=== PATIENT | female | born 1950 | race Caucasian/White ===

== ENCOUNTER 2017-05-18 08:10 | Day surgery (SDC) | payer MEDICARE, OTHER ==
[2017-05-18] MEDS ORDERED: Lactated Ringers 1,000 ML IV ONE (08:11)
[2017-05-18] MEDS ORDERED: Xylocaine 1% Vial 30 ML PF IJ ONE (08:11)
[2017-05-18] MEDS ORDERED: DIPRIVAN 200 MG/20 ML IV ONE (08:11)
[2017-05-18] MEDS ORDERED: Marcaine 0.5% SDV 10 ML IJ ONE (08:11)
[2017-05-18 08:57] LABS: Hematocrit 41.5 % (35-47); Hemoglobin 13.7 gm/dl (12.0-16.0); Mean Cell Volume 93.9 fl (78-100); Mean Platelet Volume 9.7 fl (6-9.5); Platelet Count 311 K/mm3 (150-450); Red Blood Count 4.42 M/mm3 (4.1-5.4); Red Cell Distribution Width 14.7 % (11.5-14.0); White Blood Count 9.7 K/mm3 (4.0-10.5)
[2017-05-18 09:12] LABS: INR 1.08 (0.8-3.0)
[2017-05-18 09:15] LABS: PTT 27.6 SECONDS (25.3-37.0)
--- NOTE | 2017-05-18 12:40 | XRAY ---
Indication: Right L2-L3 MBB. Intraoperative fluoroscopy was provided for 43 seconds. 2 digital spot images submitted for interpretation demonstrates posterior spinal needle tips projecting over the expected course of the right L2 and L3 nerve roots. Incidental multilevel bilateral lumbar pedicle screws and spinal rods. Correlate with intraoperative findings/report.
--- NOTE | 2017-05-18 12:44 | XRAY ---
43 seconds fluoroscopy time in surgery for right L2-3 MBB.
--- NOTE | 2017-05-18 14:48 | OP ---
DATE OF PROCEDURE: 05/18/2017 1012 SURGEON: Cal Dobson D.O. PREOPERATIVE DIAGNOSIS: 1. Degenerative lumbar spine disease, spondylosis, low back pain. POSTOPERATIVE DIAGNOSIS: 1. Degenerative lumbar spine disease, spondylosis, low back pain. PROCEDURE PERFORMED: Right L3-L2 medial branch block under fluoroscopic guidance. DESCRIPTION OF THE PROCEDURE: The patient was taken to the operating room and placed in the prone position on the table. Skin at the injection site was prepped and draped in sterile fashion. Under fluoroscopy, bony anatomy of the targeted injection site was visualized. Induction agent was given as per anesthesia while vital signs were monitored. Local anesthetic agent of 2 cc, 1% Lidocaine was introduced to anesthetize the skin and the subcutaneous tissue through the injection site. Under fluoroscopic guidance, a #20 gauge standard spinal needle was advanced into the target medial branch through the oblique approach. 1 cc of 2% preservative-free Lidocaine was injected into each of the targeted medial branch nerve. After the needle was being removed, the skin was cleansed with alcohol and then a bandage was applied. No complications or adverse consequences were observed. The patient was returned to the holding area until stabilized before discharge to home. During the surgical procedure, it was noted that the patient had hardware implantation in lower lumbar area, the possible access for medial branch block possible for L3-L2 medial branch, and therefore right L3-L2 medial branch block was completed. There is no access to medial branch below L3. After the patient has been fully recovered from anesthesia, the patient states 80% pain reduction after this procedure. The patient will be followed up within ten days after the injection for re-evaluation.
== END 2017-05-18 11:22 | disposition home or self-care (01) ==
LOC: SDC-PAIN 08:10
PROVIDERS: ATTEND Internal Medicine
DX: M46.96 Unspecified inflammatory spondylopathy, lumbar region (principal); M62.838 Other muscle spasm; M96.1 Postlaminectomy syndrome, not elsewhere classified; Z79.891 Long term (current) use of opiate analgesic
CPT/HCPCS: 36415; 64493; 72020; 77003; 85027; 85610; 85730; J2001; J2704

== ENCOUNTER 2017-05-29 11:56 | Inpatient (IN) | payer MEDICARE ==
[2017-05-29] MEDS ORDERED: Sodium Chloride 0.9% 1000 ML 2,000 ML ONE (12:23)
[2017-05-29] MEDS ORDERED: Sodium Chloride 0.9% 1000 ML 1,000 ML IV STA ×2 (12:34→12:40)
[2017-05-29] MEDS ORDERED: DUONEB 0.5-3 MG/3 ml Neb IH ONE ×2 (12:34→12:53)
--- NOTE | 2017-05-29 12:34 | ERPHSYRPT ---
- History of Present Illness Time Seen by Provider: 05/29/17 12:31 Source: family Exam Limitations: clinical condition Patient Subjective Stated Complaint: family noticed last night and today patient has been confused. recent cough. Triage Nursing Assessment: to room per w/c. skin hot to touch. color pale. resp fast at 26/min. occasional dry cough noted. at present time patient is a/ o times three. speech slow Physician History: The patient is a 66-year-old female brought in by her family complaining that she was very confused this morning. She was "out of it". She was not breathing well. Her eyes are open and rolled back. She did not answer questions well at home. After placing supplemental oxygen by nasal cannula on her in the ER, she began to answer questions appropriately. Her past medical history is significant for COPD, hypertension, chronic back pain, diabetes, TIAs , coronary artery disease, and high cholesterol. Timing/Duration: today Activities at Onset: none Severity of Dyspnea-Max: severe Severity of Dyspnea-Current: severe Possible Cause: occasional episodes Modifying Factors: Improves With: activity Associated Symptoms: cough Allergies/Adverse Reactions: ketorolac tromethamine [From Toradol] Allergy (Verified 01/25/14 18:47) pregabalin [From Lyrica] Allergy (Verified 03/22/17 10:42) Home Medications: Amlodipine Besylate 5 mg [Norvasc 5 mg] 2.5 mg PO BID 01/25/14 [History] Gabapentin 600 mg PO QID 01/25/14 [History] Tizanidine HCl [Zanaflex] 4 mg PO QID 01/25/14 [History] Duloxetine HCl 30 mg [Cymbalta 30 MG Capsule] 90 mg PO DAILY 08/06/15 [ History] Omeprazole 20 MG [Prilosec 20 mg] 20 mg PO DAILY 08/06/15 [History] Hydromorphone HCl 4 mg [Dilaudid 4 MG Tab] 2 mg PO Q4-6HPRN PRN 09/16/15 [ History] Pravastatin Sodium 10 mg PO DAILY 10/19/16 [History] Cilostazol 100 mg [Pletal 100 MG] 100 mg PO BID 12/14/16 [History] Clopidogrel Bisulfate 75 mg [PLAVIX 75 MG Tablet] 75 mg PO DAILY 12/14/16 [History] Glipizide 5 mg [Glucotrol 5 MG] 5 mg PO DAILY 03/22/17 [History] Metoprolol Tartrate 50 mg [Lopressor 50 MG] 50 mg PO BID 03/22/17 [History ] Trazodone HCl [Desyrel] 100 mg PO HS 03/22/17 [History] Meloxicam [Mobic] 15 mg PO DAILY 05/10/17 [History] Hx Tetanus, Diphtheria Vaccination/Date Given: No Hx Influenza Vaccination/Date Given: Yes Hx Pneumococcal Vaccination/Date Given: No - Review of Systems Constitutional: Lethargy Eyes: No Symptoms Ears, Nose, & Throat: No Symptoms Respiratory: Cough, Dyspnea Cardiac: No Chest Pain, No Edema, No Syncope Abdominal/Gastrointestinal: No Abdominal Pain, No Nausea, No Vomiting, No Diarrhea Genitourinary Symptoms: No Dysuria Musculoskeletal: No Back Pain, No Neck Pain Skin: No Rash Neurological: No Dizziness, No Focal Weakness, No Sensory Changes Psychological: No Symptoms Endocrine: No Symptoms Hematologic/Lymphatic: No Symptoms Immunological/Allergic: No Symptoms All Other Systems: Reviewed and Negative - Past Medical History Pertinent Past Medical History: Yes Neurological History: TIA Cardiac History: Hypertension, Peripheral Vascular Disease Respiratory History: COPD Endocrine Medical History: Diabetes Type II Musculoskeletal History: Osteoporosis - Past Surgical History Past Surgical History: Yes Gastrointestinal: Cholecystectomy Musculoskeletal: Orthopedic Surgery Female Surgical History: Hysterectomy Other Surgical History: BACK SURGERY, LEFT FOOT, RIGHT KNEE, vascular surgery( pvd) - Social History Smoking Status: Current every day smoker How long have you smoked: 47 Exposure to second hand smoke: Yes Drug Use: none Patient Lives Alone: No - Female History Hx Now: No - Nursing Vital Signs Nursing Vital Signs: Initial Vital Signs Temperature 100.3 F 05/29/17 12:17 Pulse Rate 132 H 05/29/17 12:17 Respiratory Rate 26 H 05/29/17 12:17 Blood Pressure 141/84 05/29/17 12:17 O2 Sat by Pulse Oximetry 81 L 05/29/17 12:17 Pain Scale Pain Intensity 0 - Physical Exam General Appearance: moderate distress Eye Exam: PERRL/EOMI Ears, Nose, Throat Exam: hearing grossly normal Neck Exam: normal inspection, supple Respiratory Exam: rhonchi Cardiovascular/Chest Exam: tachycardia Abdominal/Gastrointestinal Exam: soft, No tenderness, No distention, No mass Rectal Exam: not done Extremity Exam: non-tender, normal range of motion, normal inspection, no calf tenderness, no pedal edema Neurologic Exam: oriented x 3 Skin Exam: normal color, warm, No dry SpO2 Interpretation: normal SpO2: 81 Oxygen Delivery: Room Air - Course EKG Interpreted by Me: RATE, Sinus Tach, NORMAL AXIS, NORMAL INTERVALS, NORMAL ST-T - Radiology Exams Chest X-ray Interpretation: Interpreted by me, Infiltrates (diffuse bilateral infiltrates, comp AP CXR 08/06/15.) - CT Exams Head CT Interpretation: Negative, Tele-radiologist Report (per Dr Reyes) Ordered Tests: Active Orders 24 hr Category Date Time Status Tank Wagon Driver STAT Care 05/29/17 12:35 Active EKG-ER Only STAT Care 05/29/17 12:34 Active Nair [Catheter-[place] Nair] STAT Care 05/29/17 13:41 Active IV Insertion STAT Care 05/29/17 12:34 Active IV Insertion-2nd Peripheral STAT Care 05/29/17 12:38 Active IV Insertion-2nd Peripheral STAT Care 05/29/17 12:40 Active Oxygen-ED Only NASAL CANNULA 2 lpm Care 05/29/17 12:34 Active CHEST 2 VIEWS (PA AND LAT) Stat Exams 05/29/17 12:34 Taken HEAD WITHOUT CONTRAST [CT] Stat Exams 05/29/17 15:27 Taken BLOOD CULTURE Stat Lab 05/29/17 12:43 Received CBC W DIFF Stat Lab 05/29/17 12:43 Completed CMP Stat Lab 05/29/17 12:43 Completed CULTURE,URINE Stat Lab 05/29/17 14:00 Received Lactic Acid Stat Lab 05/29/17 12:34 Completed Manual Differential NC Stat Lab 05/29/17 12:43 Completed NT PRO BNP Stat Lab 05/29/17 12:43 Completed TROPONIN Q3H Lab 05/29/17 12:43 Completed TROPONIN Q3H Lab 05/29/17 15:45 Completed TROPONIN Q3H Lab 05/29/17 18:45 Ordered TROPONIN Q3H Lab 05/29/17 21:45 Ordered TROPONIN Q3H Lab 05/30/17 00:45 Ordered UA W/ MICROSCOPIC Stat Lab 05/29/17 14:00 Completed Respiratory Nebulizer STAT RT 05/29/17 12:36 Completed Medication Summary Generic Name Dose Route Start Last Admin Trade Name Addison PRN Reason Stop Dose Admin Sodium Chloride 1,000 mls @ 100 mls/hr 05/29/17 14:00 05/29/17 13:59 Sodium Chloride 0.9% 1000 Ml IV 06/28/17 13:59 100 mls/hr .Q10H TROY Administration Discontinued Medications Generic Name Dose Route Start Last Admin Trade Name Addison PRN Reason Stop Dose Admin Acetaminophen 1,000 mg 05/29/17 14:38 05/29/17 15:27 Tylenol Extra Strength 500 Mg PO 05/29/17 14:39 1,000 mg STAT STA Administration Acetaminophen Confirm 05/29/17 15:26 Tylenol Extra Strength 500 Mg Administered 05/29/17 15:27 Dose 1,000 mg .ROUTE .STK-MED ONE Albuterol/Ipratropium 3 ml 05/29/17 12:34 05/29/17 12:50 Duoneb 0.5-3 Mg/3 Ml Neb IH 05/29/17 12:35 3 ml STAT ONE Administration Albuterol/Ipratropium Confirm 05/29/17 12:53 Duoneb 0.5-3 Mg/3 Ml Neb Administered 05/29/17 12:54 Dose 3 ml IH .STK-MED ONE Sodium Chloride Confirm 05/29/17 12:23 Sodium Chloride 0.9% 1000 Ml Administered 05/29/17 12:24 Dose 2,000 mls @ ud .ROUTE .STK-MED ONE Sodium Chloride 1,000 mls @ 999 mls/hr 05/29/17 12:34 05/29/17 12:38 Sodium Chloride 0.9% 1000 Ml IV 05/29/17 13:34 999 mls/hr .Q1H1M STA Administration Sodium Chloride 1,000 mls @ 999 mls/hr 05/29/17 12:40 05/29/17 13:05 Sodium Chloride 0.9% 1000 Ml IV 05/29/17 13:40 999 mls/hr .Q1H1M STA Administration Lab/Rad Data: Laboratory Result Diagrams 05/29/17 12:43 05/29/17 12:43 Laboratory Results 05/29/17 05/29/17 05/29/17 Range/Units 15:45 14:00 12:43 WBC (4.0-10.5) K/mm3 RBC (4.1-5.4) M/mm3 Hgb (12.0-16.0) gm/dl Hct (35-47) % MCV (78-100) fl MCH (26-32) pg MCHC (32-36) g/dl RDW (11.5-14.0) % Plt Count (150-450) K/mm3 MPV (6-9.5) fl Segmented Neutrophils (36.0-66.0) % Lymphocytes (Manual) (24-44) % Monocytes (Manual) (0.0-12.0) % Differential Comment Platelet Estimate (NORMAL) Sodium (136-145) mEq/L Potassium (3.5-5.1) mEq/L Chloride (98-107) mEq/L Carbon Dioxide (21-32) mEq/L Anion Gap (5-15) MEQ/L BUN (9-20) mg/dL Creatinine (0.55-1.30) mg/dl Estimated GFR ML/MIN Glucose (70-110) MG/DL Lactic Acid (0.4-2.0) Calcium (8.5-10.1) mg/dL Total Bilirubin (0.2-1.0) mg/dL AST (15-37) U/L ALT (12-78) U/L Alkaline Phosphatase (46-116) U/L Troponin I < 0.017 (0.000-0.056) ng/ml NT-Pro-B Natriuret Pep (0-125) pg/ml Serum Total Protein (6.4-8.2) gm/dL Albumin (3.4-5.0) g/dL Ur Collection Type CATH Urine Color YELLOW (YELLOW) Urine Appearance CLOUDY (CLEAR) Urine pH 5.0 (5-6) Ur Specific [place] 1.010 (1.005-1.025) Urine Protein TRACE (Negative) Urine Ketones MODERATE (NEGATIVE) Urine Blood 50 (0-5) [place]/ul Urine Nitrite POSITIVE (NEGATIVE) Urine Bilirubin NEGATIVE (NEGATIVE) Urine Urobilinogen NORMAL (0-1) mg/dL Ur Leukocyte Esterase TRACE (NEGATIVE) Urine Microscopic RBC 2-5 (0-2) /HPF Urine Microscopic WBC 2-5 (0-5) /HPF Ur Epithelial Cells FEW (FEW) /HPF Urine Bacteria PACKED (NEGATIVE) /HPF Urine Mucus SLIGHT (NEGATIVE) /HPF Urine Culture Reflexed YES (NO) Urine Glucose 100 (NEGATIVE) mg/dL Influenza Type A Ag NEGATIVE (NEGATIVE) Influenza Type B Ag NEGATIVE (NEGATIVE) RSV (PCR) NEGATIVE (Negative) Specimen Received 05-29-17 1400 05/29/17 05/29/17 05/29/17 Range/Units 12:43 12:43 12:43 WBC 20.4 H (4.0-10.5) K/mm3 RBC 4.31 (4.1-5.4) M/mm3 Hgb 13.6 (12.0-16.0) gm/dl Hct 40.6 (35-47) % MCV 94.2 (78-100) fl MCH 31.6 (26-32) pg MCHC 33.5 (32-36) g/dl RDW 14.6 H (11.5-14.0) % Plt Count 277 (150-450) K/mm3 MPV 9.8 H (6-9.5) fl Segmented Neutrophils 79 H (36.0-66.0) % Lymphocytes (Manual) 18 L (24-44) % Monocytes (Manual) 3 (0.0-12.0) % Differential Comment NORMAL Platelet Estimate NORMAL (NORMAL) Sodium 139 (136-145) mEq/L Potassium 3.7 (3.5-5.1) mEq/L Chloride 100 (98-107) mEq/L Carbon Dioxide 24.4 (21-32) mEq/L Anion Gap 18.0 H (5-15) MEQ/L BUN 15 (9-20) mg/dL Creatinine 0.91 (0.55-1.30) mg/dl Estimated GFR > 60 ML/MIN Glucose 221 H (70-110) MG/DL Lactic Acid (0.4-2.0) Calcium 8.9 (8.5-10.1) mg/dL Total Bilirubin 1.00 (0.2-1.0) mg/dL AST 11 L (15-37) U/L ALT 19 (12-78) U/L Alkaline Phosphatase 92 (46-116) U/L Troponin I < 0.017 (0.000-0.056) ng/ml NT-Pro-B Natriuret Pep 597 H (0-125) pg/ml Serum Total Protein 7.8 (6.4-8.2) gm/dL Albumin 3.4 (3.4-5.0) g/dL Ur Collection Type Urine Color (YELLOW) Urine Appearance (CLEAR) Urine pH (5-6) Ur Specific [place] (1.005-1.025) Urine Protein (Negative) Urine Ketones (NEGATIVE) Urine Blood (0-5) Naga/ul Urine Nitrite (NEGATIVE) Urine Bilirubin (NEGATIVE) Urine Urobilinogen (0-1) mg/dL Ur Leukocyte Esterase (NEGATIVE) Urine Microscopic RBC (0-2) /HPF Urine Microscopic WBC (0-5) /HPF Ur Epithelial Cells (FEW) /HPF Urine Bacteria (NEGATIVE) /HPF Urine Mucus (NEGATIVE) /HPF Urine Culture Reflexed (NO) Urine Glucose (NEGATIVE) mg/dL Influenza Type A Ag (NEGATIVE) Influenza Type B Ag (NEGATIVE) RSV (PCR) (Negative) Specimen Received 05/29/17 Range/Units 12:34 WBC (4.0-10.5) K/mm3 RBC (4.1-5.4) M/mm3 Hgb (12.0-16.0) gm/dl Hct (35-47) % MCV (78-100) fl MCH (26-32) pg MCHC (32-36) g/dl RDW (11.5-14.0) % Plt Count (150-450) K/mm3 MPV (6-9.5) fl Segmented Neutrophils (36.0-66.0) % Lymphocytes (Manual) (24-44) % Monocytes (Manual) (0.0-12.0) % Differential Comment Platelet Estimate (NORMAL) Sodium (136-145) mEq/L Potassium (3.5-5.1) mEq/L Chloride (98-107) mEq/L Carbon Dioxide (21-32) mEq/L Anion Gap (5-15) MEQ/L BUN (9-20) mg/dL Creatinine (0.55-1.30) mg/dl Estimated GFR ML/MIN Glucose (70-110) MG/DL Lactic Acid 1.1 (0.4-2.0) Calcium (8.5-10.1) mg/dL Total Bilirubin (0.2-1.0) mg/dL AST (15-37) U/L ALT (12-78) U/L Alkaline Phosphatase (46-116) U/L Troponin I (0.000-0.056) ng/ml NT-Pro-B Natriuret Pep (0-125) pg/ml Serum Total Protein (6.4-8.2) gm/dL Albumin (3.4-5.0) g/dL Ur Collection Type Urine Color (YELLOW) Urine Appearance (CLEAR) Urine pH (5-6) Ur Specific [place] (1.005-1.025) Urine Protein (Negative) Urine Ketones (NEGATIVE) Urine Blood (0-5) N[place]/ul Urine Nitrite (NEGATIVE) Urine Bilirubin (NEGATIVE) Urine Urobilinogen (0-1) mg/dL Ur Leukocyte Esterase (NEGATIVE) Urine Microscopic RBC (0-2) /HPF Urine Microscopic WBC (0-5) /HPF Ur Epithelial Cells (FEW) /HPF Urine Bacteria (NEGATIVE) /HPF Urine Mucus (NEGATIVE) /HPF Urine Culture Reflexed (NO) Urine Glucose (NEGATIVE) mg/dL Influenza Type A Ag (NEGATIVE) Influenza Type B Ag (NEGATIVE) RSV (PCR) (Negative) Specimen Received - Progress Progress: improved Air Movement: good Blood Culture(s) Obtained: Yes Antibiotics given: Yes Discussed with : Marisol Landaverde Will see patient in: hospital (full admit) Counseled pt/family regarding: lab results, diagnosis, rad results - Departure Time of Disposition: 17:04 Departure Disposition: In-patient Admission (per Dr Nia Landaverde) Clinical Impression: Pulmonary infiltrates, UTI (urinary tract infection), Dyspnea Condition: Stable Critical Care Time: No Referrals: TARAS ALBA MD [Primary Care Provider] -
[2017-05-29 12:47] LABS: Granulocyte Absolute (ANC) 17.96 (1.4-6.9); Hematocrit 40.6 % (35-47); Hemoglobin 13.6 gm/dl (12.0-16.0); Mean Cell Volume 94.2 fl (78-100); Mean Corpuscular Hemoglobin 31.6 pg (26-32); Mean Corpuscular Hgb Concent. 33.5 g/dl (32-36); Mean Platelet Volume 9.8 fl (6-9.5); Platelet Count 277 K/mm3 (150-450); Red Blood Count 4.31 M/mm3 (4.1-5.4); Red Cell Distribution Width 14.6 % (11.5-14.0); White Blood Count 20.4 K/mm3 (4.0-10.5)
[2017-05-29 13:00] LABS: Lymphocytes 18 % (24-44); Monocyte 3 % (0.0-12.0); Neutrophils 79 % (36.0-66.0); Total Cells Counted 100
[2017-05-29 13:01] LABS: Platelet Estimate NORMAL (NORMAL)
[2017-05-29 13:15] LABS: ALBUMIN 3.4 g/dL (3.4-5.0); ALKALINE PHOSPHATASE 92 U/L (46-116); BLOOD UREA NITROGEN 15 mg/dL (9-20); CHLORIDE 100 mEq/L (98-107); Calcium 8.9 mg/dL (8.5-10.1); Carbon Dioxide 24.4 mEq/L (21-32); Creatinine 1 0.91 mg/dl (0.55-1.30); Glucose 221 MG/DL (70-110); NT PRO BNP 597 pg/ml (0-125); Potassium 3.7 mEq/L (3.5-5.1); SGOT/AST 11 U/L (15-37); SGPT/ALT 19 U/L (12-78); SODIUM 139 mEq/L (136-145); Total Protein 7.8 gm/dL (6.4-8.2)
[2017-05-29 13:19] LABS: INFLUENZA A NEGATIVE (NEGATIVE); INFLUENZA B NEGATIVE (NEGATIVE); RESPIRATORY SYNCTIAL VIRUS NEGATIVE (Negative)
[2017-05-29] MEDS: Sodium Chloride 0.9% 1000 ML 1,000 ML IV SCH ×2 (13:59→19:46)
[2017-05-29 14:19] LABS: Appearance CLOUDY (CLEAR); Bilirubin NEGATIVE (NEGATIVE); Blood 50 Ery/ul (0-5); Glucose 100 mg/dL (NEGATIVE); Ketones MODERATE (NEGATIVE); Leukocyte Esterase TRACE (NEGATIVE); Nitrite POSITIVE (NEGATIVE); Protein,Urine Dip TRACE (Negative); Urobilinogen NORMAL mg/dL (0-1)
[2017-05-29 14:24] LABS: Bacteria PACKED /HPF (NEGATIVE); Epithelial Cells FEW /HPF (FEW); Mucus SLIGHT /HPF (NEGATIVE)
[2017-05-29] MEDS ORDERED: TYLENOL EXTRA STRENGTH 500 MG PO STA (14:38)
[2017-05-29] MEDS ORDERED: TYLENOL EXTRA STRENGTH 500 MG ONE (15:26)
[2017-05-29] MEDS ORDERED: ROCEPHIN 1 Gm-D5w 50 ml Bag** 1 G/50 ML IVPB IV STA (16:57)
[2017-05-29] MEDS ORDERED: ROCEPHIN 1 Gm-D5w 50 ml Bag** 1 G/50 ML IVPB IV ONE (17:00)
[2017-05-29] MEDS ORDERED: TYLENOL 325 MG PO PRN (17:49)
[2017-05-29] MEDS ORDERED: Zofran 4 MG/2 ML VIAL IV PRN (17:49)
[2017-05-29] MEDS ORDERED: PROVENTIL 2.5 MG/3 ML NEB IH SCH (19:00)
[2017-05-29] MEDS: DUONEB 0.5-3 MG/3 ml Neb IH SCH (19:38)
[2017-05-29] MEDS ORDERED: Dilaudid 4 MG Tab PO STA (20:01)
--- NOTE | 2017-05-29 20:57 | XRAY ---
Indication: Cough. Comparison: August 06, 2015. PA/lateral chest demonstrates new bilateral mid to lower lung infiltrates/atelectasis without consolidation or large effusion. Heart is not enlarged. Bony thorax intact again with osteopenia and degenerative changes.
[2017-05-29] MEDS ORDERED: Dilaudid 4 MG Tab PO ONE (21:00)
--- NOTE | 2017-05-29 21:05 | XRAY ---
Indication: Confusion. Multiple contiguous axial images obtained through the head without contrast. Comparison: None Several images slightly degraded by motion artifact. Ventriculosulcal pattern appears symmetric. No acute intracranial hemorrhage, abnormal extra-axial fluid collection, or mass effect. Fourth ventricle is midline without hydrocephalus. Bianchi-white matter differentiation preserved. Bony calvarium intact. Minimal left sphenoid sinus mucosal thickening. Mastoid air cells are clear. Impression: 1. Motion artifact. 2. No acute intracranial abnormalities. 3. Minimal paranasal sinus disease. Comment: Preliminary interpretation was made by [facility]. No critical discrepancy. CTDI 66.12
[2017-05-29] MEDS: Pletal 100 MG PO SCH (22:07)
[2017-05-29] MEDS: NEURONTIN 300 MG PO SCH (22:09)
[2017-05-29] MEDS: DESYREL 50 MG PO SCH (22:09)
[2017-05-29] MEDS: Zanaflex 4 MG PO SCH (22:10)
[2017-05-30 02:20] LABS: Granulocyte Absolute (ANC) 14.36 (1.4-6.9); Hematocrit 36.9 % (35-47); Hemoglobin 12.3 gm/dl (12.0-16.0); Mean Cell Volume 94.9 fl (78-100); Mean Corpuscular Hemoglobin 31.6 pg (26-32); Mean Corpuscular Hgb Concent. 33.3 g/dl (32-36); Mean Platelet Volume 9.8 fl (6-9.5); Platelet Count 256 K/mm3 (150-450); Red Blood Count 3.89 M/mm3 (4.1-5.4); Red Cell Distribution Width 14.6 % (11.5-14.0); White Blood Count 17.7 K/mm3 (4.0-10.5)
[2017-05-30 02:39] LABS: ALBUMIN 2.9 g/dL (3.4-5.0); ALKALINE PHOSPHATASE 70 U/L (46-116); ANION GAP 15.1 MEQ/L (5-15); BLOOD UREA NITROGEN 13 mg/dL (9-20); CHLORIDE 108 mEq/L (98-107); Calcium 8.1 mg/dL (8.5-10.1); Carbon Dioxide 24.7 mEq/L (21-32); Creatinine 1 0.63 mg/dl (0.55-1.30); Glucose 163 MG/DL (70-110); Potassium 3.3 mEq/L (3.5-5.1); SGOT/AST 10 U/L (15-37); SGPT/ALT 18 U/L (12-78); SODIUM 145 mEq/L (136-145); Total Protein 6.3 gm/dL (6.4-8.2)
[2017-05-30 03:22] LABS: BAND 3 % (0.0-2.0); Lymphocytes 11 % (24-44); Monocyte 12 % (0.0-12.0); Neutrophils 74 % (36.0-66.0); Platelet Estimate NORMAL (NORMAL); Total Cells Counted 100
[2017-05-30] MEDS: DUONEB 0.5-3 MG/3 ml Neb IH SCH ×4 (06:55→19:45)
[2017-05-30] MEDS ORDERED: NON-FORMULARY ITEM (Omeprazole 20 Mg [Prilosec 20 Mg] 20 MG) PO SCH (10:00)
[2017-05-30] MEDS ORDERED: Zithromax 500 MG/ 250 ML NaCl Premix 500 MG/250 ML IVPB IV SCH ×2 (10:00→22:00)
[2017-05-30] MEDS ORDERED: NON-FORMULARY ITEM (Pravastatin Sodium [Pravastatin Sodium] 10 MG) PO SCH (10:00)
[2017-05-30] MEDS ORDERED: NON-FORMULARY ITEM (Meloxicam [Mobic] 15 MG) PO SCH (10:00)
[2017-05-30] MEDS: Lopressor 50 MG PO SCH ×2 (10:06→21:10)
[2017-05-30] MEDS: ROCEPHIN 1 Gm-D5w 50 ml Bag** 1 G/50 ML IVPB IV SCH (10:06)
[2017-05-30] MEDS: Cymbalta 30 MG Capsule PO SCH (10:06)
[2017-05-30] MEDS: Zanaflex 4 MG PO SCH ×4 (10:06→21:10)
[2017-05-30] MEDS: Protonix 40MG Tablet PO SCH (10:07)
[2017-05-30] MEDS: Mobic 7.5 MG PO SCH (10:07)
[2017-05-30] MEDS: Zocor 10MG PO SCH (10:07)
[2017-05-30] MEDS: NORVASC 5 MG PO SCH ×2 (10:07→21:10)
[2017-05-30] MEDS: PLAVIX 75 MG Tablet PO SCH (10:07)
[2017-05-30] MEDS: NEURONTIN 300 MG PO SCH ×4 (10:07→21:10)
[2017-05-30] MEDS: Pletal 100 MG PO SCH ×2 (10:07→21:10)
[2017-05-30] MEDS: Glucotrol 5 MG PO SCH (10:09)
[2017-05-30] MEDS: Sodium Chloride 0.9% 1000 ML 1,000 ML IV SCH (10:09)
[2017-05-30] MEDS: Dilaudid 4 MG Tab PO PRN ×3 (10:57→21:29)
--- NOTE | 2017-05-30 12:02 | PCM.HP ---
History of Present Illness - Chief Complaint Chief Complaint: Shortness of Breath History of Present Illness: is a 66 year old female brought in by her family complaining that she was very confused this morning. She was "out of it". She was not breathing well. Her eyes are open and rolled back. She did not answer questions well at home. After placing supplemental oxygen by nasal cannula on her in the ER, she began to answer questions appropriately. - Review of Systems Constitutional: No Fever, No Chills Eyes: No Symptoms Ears, Nose, & Throat: No Symptoms Respiratory: No Cough, No Short Of Breath Cardiac: No Chest Pain, No Edema, No Syncope Abdominal/Gastrointestinal: No Abdominal Pain, No Nausea, No Vomiting, No Diarrhea Genitourinary Symptoms: No Dysuria Musculoskeletal: No Back Pain, No Neck Pain Skin: No Rash Neurological: No Dizziness, No Focal Weakness, No Sensory Changes Psychological: No Symptoms Endocrine: No Symptoms Hematologic/Lymphatic: No Symptoms Immunological/Allergic: No Symptoms Medications & Allergies Home Medications: Home Medication List Amlodipine Besylate 5 mg [Norvasc 5 mg] 2.5 mg PO BID 01/25/14 [History Confirmed 05/29/17] Gabapentin 600 mg PO QID 01/25/14 [History Confirmed 05/29/17] Tizanidine HCl [Zanaflex] 4 mg PO QID 01/25/14 [History Confirmed 05/29/17] Duloxetine HCl 30 mg [Cymbalta 30 MG Capsule] 90 mg PO DAILY 08/06/15 [ History Confirmed 05/29/17] Omeprazole 20 MG [Prilosec 20 mg] 20 mg PO DAILY 08/06/15 [History Confirmed ] Hydromorphone HCl 4 mg [Dilaudid 4 MG Tab] 2 mg PO Q4-6HPRN PRN 09/16/15 [ History Confirmed 05/29/17] Pravastatin Sodium 10 mg PO DAILY 10/19/16 [History Confirmed 05/29/17] Cilostazol 100 mg [Pletal 100 MG] 100 mg PO BID 12/14/16 [History Confirmed 05/29/17] Clopidogrel Bisulfate 75 mg [PLAVIX 75 MG Tablet] 75 mg PO DAILY 12/14/16 [History Confirmed 05/29/17] Glipizide 5 mg [Glucotrol 5 MG] 5 mg PO DAILY 03/22/17 [History Confirmed 05/29/17] Metoprolol Tartrate 50 mg [Lopressor 50 MG] 50 mg PO BID 03/22/17 [ History Confirmed 05/29/17] Trazodone HCl [Desyrel] 100 mg PO HS 03/22/17 [History Confirmed 05/29/17] Meloxicam [Mobic] 15 mg PO DAILY 05/10/17 [History Confirmed 05/29/17] Allergies/Adverse Reactions: Allergies Allergy/AdvReac Type Severity Reaction Status Date / Time ketorolac tromethamine Allergy Verified 01/25/14 18:47 [From Toradol] pregabalin [From Lyrica] Allergy Verified 03/22/17 10:42 - Past Medical History Past Medical History: Yes Neurological History: TIA Cardiac History: Hypertension, Peripheral Vascular Disease Respiratory History: COPD Endocrine Medical History: Diabetes Type II Musculoskelatal History: No Pertinent History, Osteoporosis GI Medical History: No Pertinent History History: No Pertinent History Pyscho-Social History: No Pertinent History Reproductive Disorders: No Pertinent History Comment: chronic back pain - Female History Are you now?: No - Past Surgical History Past Surgical History: Yes Neuro Surgical History: No Pertinent History Cardiac History: No Pertinent History Respiratory Surgery: No Pertinent History GI Surgical History: Cholecystectomy Musculskeletal Surgical Hx: Orthopedic Surgery Female Surgical History: Hysterectomy Other Surgical History: BACK SURGERY, LEFT FOOT, RIGHT KNEE, vascular surgery( pvd) - Social History Smoking Status: Current every day smoker How long have you smoked: 30 Exposure to second hand smoke: Yes Alcohol: None Drug Use: none - Physical Exam Vital Signs: Vital Signs - 24 hr Temp Pulse Resp BP Pulse Ox 05/30/17 11:33 89 16 93 L 05/30/17 07:59 18 05/30/17 07:49 98.4 F 91 H 18 145/71 95 05/30/17 06:55 104 H 18 94 L 05/30/17 04:00 99.7 F 116 H 20 167/74 94 L 05/30/17 00:00 97.9 F 105 H 15 131/69 95 05/29/17 23:57 88 21 94 L 05/29/17 22:05 122/57 05/29/17 20:00 98.0 F 88 17 100/54 94 L 05/29/17 18:03 100.3 F 96 H 18 117/57 96 05/29/17 17:10 96 H 18 117/57 96 05/29/17 17:04 81 L 05/29/17 16:34 104 H 18 123/64 95 05/29/17 14:00 126 H 20 141/63 94 L 05/29/17 13:43 125 H 20 94 L 05/29/17 12:50 128 H 18 130/80 96 05/29/17 12:17 100.3 F 132 H 26 H 141/84 81 L Oxygen-Last 24 hours O2 Percentage 4 Liters = 36% O2 Percentage 4 Liters = 36% O2 Percentage 4 Liters = 36% O2 Percentage 5 Liters = 40% O2 Percentage 5 Liters = 40% O2 Percentage 3 Liters = 32% O2 Percentage 5 Liters = 40% General Appearance: no apparent distress, alert Neurologic Exam: alert, oriented x 3, cooperative, normal mood/affect, nml cerebellar function, nml station & gait, sensation nml, No motor deficits Eye Exam: PERRL/EOMI, eyes nml inspection Ears, Nose, Throat Exam: normal ENT inspection, TMs normal, pharynx normal, moist mucous membranes Neck Exam: normal inspection, non-tender, supple, full range of motion Respiratory Exam: normal breath sounds, lungs clear, No respiratory distress Cardiovascular Exam: regular rate/rhythm, normal heart sounds, normal peripheral pulses Gastrointestinal/Abdomen Exam: soft, normal bowel sounds, No tenderness, No mass Back Exam: normal inspection, normal range of motion, No CVA tenderness, No vertebral tenderness Extremity Exam: normal inspection, normal range of motion, pelvis stable Skin Exam: normal color, warm, dry, No rash Lymphatic Exam: No adenopathy Results - Labs Lab/Micro Results: Accuchecks Date 05/30/17 Date 05/30/17 Accucheck Value: 283 Accucheck Value: 166 Lab Results-Last 24 Hours 05/29/17 05/29/17 05/30/17 Range/Units 18:58 22:08 02:12 WBC (4.0-10.5) K/mm3 RBC (4.1-5.4) M/mm3 Hgb (12.0-16.0) gm/dl Hct (35-47) % MCV (78-100) fl MCH (26-32) pg MCHC (32-36) g/dl RDW (11.5-14.0) % Plt Count (150-450) K/mm3 MPV (6-9.5) fl Segmented Neutrophils (36.0-66.0) % Band Neutrophils (0.0-2.0) % Lymphocytes (Manual) (24-44) % Monocytes (Manual) (0.0-12.0) % Differential Comment Platelet Estimate (NORMAL) Sodium (136-145) mEq/L Potassium (3.5-5.1) mEq/L Chloride (98-107) mEq/L Carbon Dioxide (21-32) mEq/L Anion Gap (5-15) MEQ/L BUN (9-20) mg/dL Creatinine (0.55-1.30) mg/dl Estimated GFR ML/MIN Glucose (70-110) MG/DL Hemoglobin A1c (4.5-6.0) Lactic Acid (0.4-2.0) Calcium (8.5-10.1) mg/dL Total Bilirubin (0.2-1.0) mg/dL AST (15-37) U/L ALT (12-78) U/L Alkaline Phosphatase (46-116) U/L Troponin I < 0.017 < 0.017 < 0.017 (0.000-0.056) ng/ml Serum Total Protein (6.4-8.2) gm/dL Albumin (3.4-5.0) g/dL 05/30/17 05/30/17 05/30/17 Range/Units 02:12 02:12 04:00 WBC 17.7 H (4.0-10.5) K/mm3 RBC 3.89 L (4.1-5.4) M/mm3 Hgb 12.3 (12.0-16.0) gm/dl Hct 36.9 (35-47) % MCV 94.9 (78-100) fl MCH 31.6 (26-32) pg MCHC 33.3 (32-36) g/dl RDW 14.6 H (11.5-14.0) % Plt Count 256 (150-450) K/mm3 MPV 9.8 H (6-9.5) fl Segmented Neutrophils 74 H (36.0-66.0) % Band Neutrophils 3 H (0.0-2.0) % Lymphocytes (Manual) 11 L (24-44) % Monocytes (Manual) 12 (0.0-12.0) % Differential Comment NORMAL Platelet Estimate NORMAL (NORMAL) Sodium 145 (136-145) mEq/L Potassium 3.3 L (3.5-5.1) mEq/L Chloride 108 H (98-107) mEq/L Carbon Dioxide 24.7 (21-32) mEq/L Anion Gap 15.1 H (5-15) MEQ/L BUN 13 (9-20) mg/dL Creatinine 0.63 (0.55-1.30) mg/dl Estimated GFR > 60 ML/MIN Glucose 163 H (70-110) MG/DL Hemoglobin A1c 6.8 H (4.5-6.0) Lactic Acid (0.4-2.0) Calcium 8.1 L (8.5-10.1) mg/dL Total Bilirubin 0.50 (0.2-1.0) mg/dL AST 10 L (15-37) U/L ALT 18 (12-78) U/L Alkaline Phosphatase 70 (46-116) U/L Troponin I (0.000-0.056) ng/ml Serum Total Protein 6.3 L (6.4-8.2) gm/dL Albumin 2.9 L (3.4-5.0) g/dL 05/30/17 Range/Units 05:38 WBC (4.0-10.5) K/mm3 RBC (4.1-5.4) M/mm3 Hgb (12.0-16.0) gm/dl Hct (35-47) % MCV (78-100) fl MCH (26-32) pg MCHC (32-36) g/dl RDW (11.5-14.0) % Plt Count (150-450) K/mm3 MPV (6-9.5) fl Segmented Neutrophils (36.0-66.0) % Band Neutrophils (0.0-2.0) % Lymphocytes (Manual) (24-44) % Monocytes (Manual) (0.0-12.0) % Differential Comment Platelet Estimate (NORMAL) Sodium (136-145) mEq/L Potassium (3.5-5.1) mEq/L Chloride (98-107) mEq/L Carbon Dioxide (21-32) mEq/L Anion Gap (5-15) MEQ/L BUN (9-20) mg/dL Creatinine (0.55-1.30) mg/dl Estimated GFR ML/MIN Glucose (70-110) MG/DL Hemoglobin A1c (4.5-6.0) Lactic Acid 0.8 (0.4-2.0) Calcium (8.5-10.1) mg/dL Total Bilirubin (0.2-1.0) mg/dL AST (15-37) U/L ALT (12-78) U/L Alkaline Phosphatase (46-116) U/L Troponin I (0.000-0.056) ng/ml Serum Total Protein (6.4-8.2) gm/dL Albumin (3.4-5.0) g/dL Accuchecks Date 05/30/17 Date 05/30/17 Accucheck Value: 283 Accucheck Value: 166 - Other Procedures and Tests Respiratory Therapy 05/29/17 23:56 neb [Respiratory Nebulizer] UD Assessment/Plan (1) Dyspnea Current Visit: Yes Status: Acute Qualifiers: Dyspnea type: dyspnea on exertion Qualified Code(s): R06.09 - Other forms of dyspnea Code(s): R06.00 - DYSPNEA, UNSPECIFIED (2) UTI (urinary tract infection) Current Visit: Yes Status: Acute Qualifiers: Urinary tract infection type: acute pyelonephritis Qualified Code(s): N10 - Acute pyelonephritis Code(s): N39.0 - URINARY TRACT INFECTION, SITE NOT SPECIFIED
[2017-05-30] MEDS: DESYREL 50 MG PO SCH (21:10)
[2017-05-31] MEDS: Sodium Chloride 0.9% 1000 ML 1,000 ML IV SCH (03:58)
[2017-05-31] MEDS: Dilaudid 4 MG Tab PO PRN ×2 (05:25→12:07)
[2017-05-31 05:49] LABS: Hematocrit 33.3 % (35-47); Hemoglobin 11.1 gm/dl (12.0-16.0); Mean Cell Volume 94.3 fl (78-100); Mean Corpuscular Hemoglobin 31.4 pg (26-32); Mean Corpuscular Hgb Concent. 33.3 g/dl (32-36); Mean Platelet Volume 10.1 fl (6-9.5); Platelet Count 263 K/mm3 (150-450); Red Blood Count 3.53 M/mm3 (4.1-5.4); Red Cell Distribution Width 14.4 % (11.5-14.0); White Blood Count 8.5 K/mm3 (4.0-10.5)
[2017-05-31] MEDS: DUONEB 0.5-3 MG/3 ml Neb IH SCH ×2 (05:50→11:15)
[2017-05-31] MEDS ORDERED: NovoLOG Insulin SQ PRN (07:53)
[2017-05-31] MEDS: PLAVIX 75 MG Tablet PO SCH (08:02)
[2017-05-31] MEDS: Glucotrol 5 MG PO SCH (08:02)
[2017-05-31] MEDS: Pletal 100 MG PO SCH (08:03)
[2017-05-31] MEDS: Zocor 10MG PO SCH (08:03)
[2017-05-31] MEDS: Cymbalta 30 MG Capsule PO SCH (08:03)
[2017-05-31] MEDS: Lopressor 50 MG PO SCH (08:03)
[2017-05-31] MEDS: Zanaflex 4 MG PO SCH ×2 (08:03→12:07)
[2017-05-31] MEDS: ROCEPHIN 1 Gm-D5w 50 ml Bag** 1 G/50 ML IVPB IV SCH (08:03)
[2017-05-31] MEDS: NORVASC 5 MG PO SCH (08:03)
[2017-05-31] MEDS: Mobic 7.5 MG PO SCH (08:03)
[2017-05-31] MEDS: Protonix 40MG Tablet PO SCH (08:03)
[2017-05-31] MEDS: NEURONTIN 300 MG PO SCH ×2 (08:03→12:06)
[2017-05-31 12:00] VITALS: BP 117/55; PULSE 79; O2SAT 91
--- NOTE | 2017-05-31 13:00 | PCM.DS ---
Discharge Summary Date of Admission: 05/29/17 17:33 Admitting Physician: MAURI MORRELL Primary Care Provider: TARAS ALBA Allergies Allergies ketorolac tromethamine [From Toradol] Allergy (Verified 01/25/14 18:47) pregabalin [From Lyrica] Allergy (Verified 03/22/17 10:42) Hospital Summary - Hospital Course Hospital Course: Chief Complaint Diagnosis Shortness of Breath Allergies Allergy/AdvReac Type Severity Reaction Status Date / Time ketorolac tromethamine Allergy Verified 01/25/14 18:47 [From Toradol] pregabalin [From Lyrica] Allergy Verified 03/22/17 10:42 Vital Signs (Last 24 hours) Temp Pulse Resp BP Pulse Ox 05/31/17 11:58 98.6 F 79 20 117/55 91 L 05/31/17 11:35 76 20 94 L 05/31/17 08:00 18 05/31/17 07:57 99.5 F 110 H 18 129/56 91 L 05/31/17 06:15 101 H 18 96 05/31/17 04:00 97.9 F 99 H 19 152/68 94 L 05/31/17 00:00 98.1 F 81 12 114/56 93 L 05/30/17 20:00 98.0 F 88 15 113/53 93 L 05/30/17 19:50 93 H 17 94 L 05/30/17 16:00 97.0 F 80 20 116/59 96 05/30/17 15:11 77 18 95 Current Medications Generic Name Dose Route Start Last Admin Trade Name Freq PRN Reason Stop Dose Admin Acetaminophen 650 mg 05/29/17 17:49 05/30/17 04:17 Tylenol 325 Mg PO 06/28/17 17:48 650 mg Q4H PRN PRN Administration PAIN AND/OR FEVER Albuterol/Ipratropium 3 ml 05/29/17 19:00 05/31/17 11:15 Duoneb 0.5-3 Mg/3 Ml Neb IH 06/28/17 18:59 3 ml QIDRT TROY Administration Amlodipine Besylate 2.5 mg 05/30/17 10:00 05/31/17 08:03 Norvasc 5 Mg PO 06/29/17 09:59 2.5 mg BID TROY Administration Cilostazol 100 mg 05/29/17 22:00 05/31/17 08:03 Pletal 100 Mg PO 06/28/17 21:59 100 mg BID TROY Administration Clopidogrel Bisulfate 75 mg 05/30/17 10:00 05/31/17 08:02 Plavix 75 Mg Tablet PO 06/29/17 09:59 75 mg DAILY TROY Administration Duloxetine HCl 90 mg 05/30/17 10:00 05/31/17 08:03 Cymbalta 30 Mg Capsule PO 06/29/17 09:59 90 mg DAILY TROY Administration Gabapentin 600 mg 05/29/17 22:00 05/31/17 12:06 Neurontin 300 Mg PO 06/28/17 21:59 600 mg QID TROY Administration Glipizide 5 mg 05/30/17 10:00 05/31/17 08:02 Glucotrol 5 Mg PO 06/29/17 09:59 5 mg DAILY@0730 TROY Administration Hydromorphone HCl 2 mg 05/30/17 09:17 05/31/17 12:07 Dilaudid 4 Mg Tab PO 06/04/17 09:16 2 mg Q4H PRN PRN Administration PAIN Ceftriaxone Sodium/Dextrose 1 g in 50 mls @ 100 mls/hr 05/30/17 10:00 08:03 Rocephin 1 Gm-D5w 50 Ml Bag IV 06/29/17 09:59 100 mls/hr Q24H10 TROY Administration Azithromycin 500 mg in 250 mls @ 250 mls/hr 05/30/17 22:00 05/30/17 21:11 Zithromax 500 Mg/ 250 Ml Nacl Premix IV 06/29/17 09:59 250 mls/hr QPM TROY Administration Insulin Aspart 0 unit 05/31/17 07:53 05/31/17 08:04 Novolog Insulin SQ 06/30/17 07:52 2 unit UD PRN Administration HYPERGLYCEMIA Meloxicam 15 mg 05/30/17 10:00 05/31/17 08:03 Mobic 7.5 Mg PO 06/29/17 09:59 15 mg DAILY TROY Administration Metoprolol Tartrate 50 mg 05/30/17 10:00 02/27/18 08:03 Lopressor 50 Mg PO 06/29/17 09:59 50 mg BID TROY Administration Ondansetron HCl 4 mg 05/29/17 17:49 Zofran 4 Mg/2 Ml Vial IV 06/28/17 17:48 Q6H PRN PRN NAUSEA/VOMITING Pantoprazole Sodium 40 mg 05/30/17 10:00 05/31/17 08:03 Protonix 40mg Tablet PO 06/29/17 09:59 40 mg DAILY TROY Administration Simvastatin 10 mg 05/30/17 10:00 05/31/17 08:03 Zocor 10mg PO 06/29/17 09:59 10 mg DAILY TROY Administration Sodium Chloride 10 ml 05/31/17 14:00 Sodium Chloride 0.9% 10 Ml Flush Syringe IV 06/30/17 13:59 Q8HT TROY Tizanidine HCl 4 mg 05/29/17 22:00 05/31/17 12:07 Zanaflex 4 Mg PO 06/28/17 21:59 4 mg QID TROY Administration Trazodone HCl 100 mg 05/29/17 22:00 05/30/17 21:10 Desyrel 50 Mg PO 06/28/17 21:59 100 mg HS TROY Administration Discontinued Medications Generic Name Dose Route Start Last Admin Trade Name Freq PRN Reason Stop Dose Admin Acetaminophen 1,000 mg 05/29/17 14:38 05/29/17 15:27 Tylenol Extra Strength 500 Mg PO 05/29/17 14:39 1,000 mg STAT STA Administration Acetaminophen Confirm 05/29/17 15:26 Tylenol Extra Strength 500 Mg Administered 05/29/17 15:27 Dose 1,000 mg .ROUTE .STK-MED ONE Albuterol Sulfate 2.5 mg 05/29/17 19:00 Proventil 2.5 Mg/3 Ml Neb IH 06/28/17 18:59 Q4HRT TROY Albuterol/Ipratropium 3 ml 05/29/17 12:34 05/29/17 12:50 Duoneb 0.5-3 Mg/3 Ml Neb IH 05/29/17 12:35 3 ml STAT ONE Administration Albuterol/Ipratropium Confirm 05/29/17 12:53 Duoneb 0.5-3 Mg/3 Ml Neb Administered 05/29/17 12:54 Dose 3 ml IH .STK-MED ONE Hydromorphone HCl 1 mg 05/29/17 20:01 05/30/17 01:30 Dilaudid 4 Mg Tab PO 05/29/17 20:02 Not Given Q4H PRN STA Hydromorphone HCl 1 mg 05/29/17 21:00 05/29/17 20:30 Dilaudid 4 Mg Tab PO 05/29/17 21:01 1 mg 1XONLY ONE Administration Sodium Chloride Confirm 05/29/17 12:23 Sodium Chloride 0.9% 1000 Ml Administered 05/29/17 12:24 Dose 2,000 mls @ ud .ROUTE .STK-MED ONE Sodium Chloride 1,000 mls @ 999 mls/hr 05/29/17 12:34 05/29/17 12:38 Sodium Chloride 0.9% 1000 Ml IV 05/29/17 13:34 999 mls/hr .Q1H1M STA Administration Sodium Chloride 1,000 mls @ 999 mls/hr 05/29/17 12:40 05/29/17 13:05 Sodium Chloride 0.9% 1000 Ml IV 05/29/17 13:40 999 mls/hr .Q1H1M STA Administration Sodium Chloride 1,000 mls @ 100 mls/hr 05/29/17 14:00 05/31/17 03:58 Sodium Chloride 0.9% 1000 Ml IV 06/28/17 13:59 100 mls/hr .Q10H TROY Administration Ceftriaxone Sodium/Dextrose 1 g in 50 mls @ 100 mls/hr 05/29/17 16:57 17:01 Rocephin 1 Gm-D5w 50 Ml Bag IV 05/29/17 17:26 100 mls/hr STAT STA Administration Ceftriaxone Sodium/Dextrose Confirm 05/29/17 17:00 Rocephin 1 Gm-D5w 50 Ml Bag Administered 05/29/17 17:01 Dose 1 g in 50 mls @ ud IV .STK-MED ONE Azithromycin 500 mg in 250 mls @ 250 mls/hr 05/30/17 10:00 05/30/17 02:50 Zithromax 500 Mg/ 250 Ml Nacl Premix IV 06/29/17 09:59 250 mls/hr Q24H10 TROY Administration Intake & Output (Last 24 hours) 05/29/17 05/30/17 05/31/17 06/01/17 11:59 11:59 11:59 11:59 Intake Total 2214 4202 Output Total 2200 4050 Balance 14 152 Weight 60.1 kg 78 kg Microbiology Results (Last 24 hours) 05/29/17 14:00 Catherized - Final Escherichia Coli 05/29/17 12:38 Blood - Final 05/29/17 12:38 Blood Blood Culture - Final Escherichia Coli 05/29/17 12:43 Blood - Final 05/29/17 12:43 Blood Blood Culture - Final Escherichia Coli Laboratory Results (Last 24 hours) 05/31/17 05/31/17 05:18 05:18 WBC 8.5 RBC 3.53 L Hgb 11.1 L Hct 33.3 L MCV 94.3 MCH 31.4 MCHC 33.3 RDW 14.4 H Plt Count 263 MPV 10.1 H NT-Pro-B Natriuret Pep 690 H Orders (Last 24 hours) Category Date Time Status ACCUCHECK [Accucheck] ACHS Care 05/30/17 18:27 Active Discontinue Nair Cath ROUTINE Care 05/31/17 09:13 Active Saline Lock [Change IV to Saline Lock] ROUTINE Care 05/31/17 09:18 Completed BNP [NT PRO BNP] AM.LAB Lab 05/31/17 05:18 Completed CBC AM.LAB Lab 05/31/17 05:18 Completed Azithromycin 500 mg/250 ml [Zithromax 500 MG/ 250 ML Med 05/30/17 22:00 Active NaCl Premix] 500 mg in 250 ml IV QPM Insulin Aspart [NovoLOG Insulin] Med 05/31/17 07:53 Active See Dose Instructions SQ UD PRN NaCl 0.9% 10 ML FLUSH [Sodium Chloride 0.9% 10 ML FLUSH Med 05/31/17 14:00 Active Syringe] 10 ml IV Q8HT Peak Expiratory Flow Rate ONCE RT 05/30/17 15:11 Active Qualify for Home Oxygen TODAY RT 05/31/17 08:55 Completed Patient Care Notes (Last 24 hours) 05/31/17 09:[address] Tiffany Lane 05/31/17, 0910, patient instructed on the qualifying for oxygen at home. O2 at 3 lpm nc, sats 96%, HR- 80, RR-22. Oxygen turned off and taken off of patient for 10 minutes. Took patient on a walk-approx. 150 feet. She did well. No SOB noted, patient did complain of her legs getting tired. Sats stayed at 96-95 % on room air, HR-88, RR-24. Patient walked back to room and sat on side of bed. Her color-good and pink. Left patient off of O2, her sats after being off O2 for 35 minutes stayed at 94-95%. Patient does not qualify for home O2 at this time. Nurse Crystal and Nurse Tab notified. Tiffany Lane [employer] Initialized on 05/31/17 09:54 - END OF NOTE 05/31/17 09:23 Nursing Note by Maritza Trinidad dc'brook. ivf dc'd, tele dc'd Initialized on 05/31/17 09:23 - END OF NOTE 05/30/17 13:05 (created 05/30/17 13:15) Case Management Note by Nandini Cisneros DR. ROUNDED AND EVALUATED, DISCUSSED TREATMENT AND PLAN OF CARE WITH PT/ /SON. ALL VERBALIZED UNDERSTANDING, ALL QUESTIONS ANSWERED AT THIS TIME. DECLINED ADDNL NEEDS AT PRESENT. WILL FOLLOW. Initialized on 05/30/17 13:15 - END OF NOTE - Vitals & Intake/Output Vital Signs: Vital Signs Temperature 98.6 F 05/31/17 11:58 Pulse Rate 79 05/31/17 11:58 Respiratory Rate 20 05/31/17 11:58 Blood Pressure 117/55 05/31/17 11:58 O2 Sat by Pulse Oximetry 91 L 05/31/17 11:58 Oxygen-Last Documented O2 Percentage 4 Liters = 36% Intake & Output: Intake & Output 05/29/17 05/30/17 05/31/17 06/01/17 11:59 11:59 11:59 11:59 Intake Total 2214 4202 Output Total 2200 4050 Balance 14 152 Weight 60.1 kg 78 kg - Lab Result Diagrams: 05/31/17 05:18 05/30/17 02:12 Lab Results-Last 24 Hrs: Accuchecks Date 05/31/17 Date 05/31/17 Date 05/30/17 Date 05/30/17 Time 11:51 Time 07:51 Accucheck Value: 154 Accucheck Value: 214 Accucheck Value: 257 Accucheck Value: 175 Lab Results-Last 24 Hours 05/31/17 05/31/17 Range/Units 05:18 05:18 WBC 8.5 (4.0-10.5) K/mm3 RBC 3.53 L (4.1-5.4) M/mm3 Hgb 11.1 L (12.0-16.0) gm/dl Hct 33.3 L (35-47) % MCV 94.3 (78-100) fl MCH 31.4 (26-32) pg MCHC 33.3 (32-36) g/dl RDW 14.4 H (11.5-14.0) % Plt Count 263 (150-450) K/mm3 MPV 10.1 H (6-9.5) fl NT-Pro-B Natriuret Pep 690 H (0-125) pg/ml Micro Results-Entire Visit: Accuchecks Date 05/31/17 Date 05/31/17 Date 05/30/17 Date 05/30/17 Time 11:51 Time 07:51 Accucheck Value: 154 Accucheck Value: 214 Accucheck Value: 257 Accucheck Value: 175 - Procedures and Test Procedures and Tests throughout Hospitalization: Therapy Orders & Screens 05/29/17 18:29 Smoking Cessation Education ONCE Comment: Diagnosis: Shortness of Breath Smoking Status: Current every day smoker How long have you smoked: 30 Have you smoked in the past 12 months: Yes Approximately how many cigarettes per day: 1/2 pk Do you dip or chew tobacco: No 05/29/17 23:56 neb [Respiratory Nebulizer] UD Comment: Diagnosis: Shortness of Breath 05/30/17 15:11 Peak Expiratory Flow Rate ONCE Comment: Reason For Exam: Diagnosis: Shortness of Breath 05/31/17 08:55 Qualify for Home Oxygen TODAY Comment: Diagnosis: Shortness of Breath Discharge Exam General Appearance: no apparent distress, alert Neurologic Exam: alert, oriented x 3, cooperative, normal mood/affect, nml cerebellar function, sensation nml, No motor deficits Skin Exam: normal color, warm, dry Eye Exam: PERRL, EOMI, eyes nml inspection Ears, Nose, Throat Exam: normal ENT inspection, pharynx normal, moist mucous membranes Neck Exam: normal inspection, non-tender, supple, full range of motion Respiratory Exam: normal breath sounds, lungs clear, No respiratory distress Cardiovascular Exam: regular rate/rhythm, normal heart sounds Gastrointestinal/Abdomen Exam: soft, No tenderness, No mass Extremity Exam: normal inspection, normal range of motion Back Exam: normal inspection, normal range of motion, No CVA tenderness, No vertebral tenderness Pelvic Exam: deferred Rectal Exam: deferred Final Diagnosis/Problem List - Final Discharge Diagnosis/Problem (1) UTI (urinary tract infection) Current Visit: Yes Status: Resolved (2) Dyspnea Current Visit: Yes Status: Resolved (3) Pneumonia Current Visit: Yes Status: Acute - Discharge Discharge Date: 05/31/17 Disposition: Home, Self-Care Condition: Stable Prescriptions: New Levofloxacin [Levaquin] 500 mg PO DAILY #7 tablet Continue Gabapentin 600 mg PO QID Tizanidine HCl [Zanaflex] 4 mg PO QID Amlodipine Besylate 5 mg [Norvasc 5 mg] 2.5 mg PO BID Duloxetine HCl 30 mg [Cymbalta 30 MG Capsule] 90 mg PO DAILY Omeprazole 20 MG [Prilosec 20 mg] 20 mg PO DAILY Hydromorphone HCl 4 mg [Dilaudid 4 MG Tab] 2 mg PO Q4-6HPRN PRN PRN Reason: Pain Pravastatin Sodium 10 mg PO DAILY Cilostazol 100 mg [Pletal 100 MG] 100 mg PO BID Clopidogrel Bisulfate 75 mg [PLAVIX 75 MG Tablet] 75 mg PO DAILY Metoprolol Tartrate 50 mg [Lopressor 50 MG] 50 mg PO BID Trazodone HCl [Desyrel] 100 mg PO HS Glipizide 5 mg [Glucotrol 5 MG] 5 mg PO DAILY Meloxicam [Mobic] 15 mg PO DAILY Instructions: Urinary Tract Infection, Adult (DC), Pneumonia, Adult (DC), Sepsis, Adult (DC) Forms: Discharge Instructions
[2017-05-31] MEDS ORDERED: Sodium Chloride 0.9% 10 ML FLUSH Syringe IV SCH (14:00)
== END 2017-05-31 13:30 | disposition home or self-care (01) | DRG 689 ==
LOC: ED 11:56 → MED SURG 17:33
PROVIDERS: ADMIT General Practice; ATTEND General Practice
DX: R91.8 Other nonspecific abnormal finding of lung field (principal); N39.0 Urinary tract infection, site not specified; N10 Acute pyelonephritis; J18.9 Pneumonia, unspecified organism; R06.00 Dyspnea, unspecified; I10 Essential (primary) hypertension; I73.9 Peripheral vascular disease, unspecified; E78.00 Pure hypercholesterolemia, unspecified; J44.9 Chronic obstructive pulmonary disease, unspecified; Z79.899 Other long term (current) drug therapy; E11.9 Type 2 diabetes mellitus without complications; M81.0 Age-related osteoporosis without current pathological fracture; Z86.73 Personal history of transient ischemic attack (TIA), and cerebral infarction without residual deficits; Z72.0 Tobacco use
CPT/HCPCS: 36000; 36415; 51702; 70450; 71046; 80053; 81000; 82962; 83036; 83605; 83880; 84484; 85025; 85027; 87040; 87077; 87086; 87186; 87631; 93005; 93041; 94150; 94640; 94760; 96360; 96361; 96365; 99285; J0456; J0696; A9270-GY

== ENCOUNTER 2017-06-22 08:03 | Day surgery (SDC) | payer MEDICARE, OTHER ==
[2017-06-22] MEDS ORDERED: Lactated Ringers 1,000 ML IV ONE (08:04)
[2017-06-22] MEDS ORDERED: Marcaine 0.5% SDV 10 ML IJ ONE (08:04)
[2017-06-22] MEDS ORDERED: Ketamine HCl 50 MG/ML IV ONE (08:04)
[2017-06-22] MEDS ORDERED: DIPRIVAN 200 MG/20 ML IV ONE (08:04)
[2017-06-22] MEDS ORDERED: Xylocaine-Mpf 2% 5 Ml Vial IJ ONE (08:04)
[2017-06-22 08:37] LABS: Hematocrit 43.4 % (35-47); Hemoglobin 14.4 gm/dl (12.0-16.0); Mean Cell Volume 93.7 fl (78-100); Mean Corpuscular Hemoglobin 31.1 pg (26-32); Mean Corpuscular Hgb Concent. 33.2 g/dl (32-36); Mean Platelet Volume 9.8 fl (6-9.5); Platelet Count 300 K/mm3 (150-450); Red Blood Count 4.63 M/mm3 (4.1-5.4); Red Cell Distribution Width 14.9 % (11.5-14.0)
[2017-06-22 08:46] LABS: INR 1.17 (0.8-3.0)
[2017-06-22 08:49] LABS: PTT 29.6 SECONDS (25.3-37.0)
--- NOTE | 2017-06-22 10:18 | XRAY ---
Indication: Right L2-L3 MBB. Intraoperative fluoroscopy was provided for 26 seconds. 2 digital spot images submitted for interpretation demonstrates posterior spinal needle tips projecting over the expected course of the right L2 and L3 nerve roots. Incidental multilevel bilateral lumbar pedicle screws and spinal rods. Correlate with intraoperative findings/report.
--- NOTE | 2017-06-22 10:22 | XRAY ---
26 seconds fluoroscopy time in surgery for right L2-3 MBB.
--- NOTE | 2017-06-23 09:46 | OP ---
DATE OF PROCEDURE: 06/22/2017 0924 SURGEON: Cal Dobson D.O. PREOPERATIVE DIAGNOSIS: Degenerative lumbar spine disease, spondylosis, low back pain. POSTOPERATIVE DIAGNOSIS: Degenerative lumbar spine disease, spondylosis, low back pain. PROCEDURE PERFORMED: Right L3-L2 medial branch block under fluoroscopic guidance. DESCRIPTION OF THE PROCEDURE: The patient was taken to the operating room and placed in the prone position on the table. Skin at the injection site was prepped and draped in sterile fashion. Under fluoroscopy, bony anatomy of the targeted injection site was visualized. Induction agent was given as per anesthesia while vital signs were monitored. Local anesthetic agent of 0.5 cc of 1% lidocaine preservative free was introduced to anesthetize the skin and the subcutaneous tissue through the injection site. Under fluoroscopic guidance, a #20 gauge standard spinal needle was advanced into the target medial branch through the oblique approach. The preservative free 0.5 cc of 1% lidocaine and 0.5 cc of 0.25% Marcaine were injected into each of the targeted medial branch nerve. After the needle was being removed, the skin was cleansed with alcohol and then a bandage was applied. No complications or adverse consequences were observed. The patient was returned to the holding area until stabilized before discharge to home. After the patient had been fully recovered from anesthesia. There was residual pain level 0 out of 10 after the procedure and also the patient. There is no muscle weakness of the lower extremities after the procedure. The patient is ambulating well. The patient will be followed up within ten days after the injection for re-evaluation.
== END 2017-06-22 10:08 | disposition home or self-care (01) ==
LOC: SDC-PAIN 08:03
PROVIDERS: ATTEND Internal Medicine
DX: M46.96 Unspecified inflammatory spondylopathy, lumbar region (principal); M15.9 Polyosteoarthritis, unspecified; M25.511 Pain in right shoulder; Z79.891 Long term (current) use of opiate analgesic
CPT/HCPCS: 36415; 64493; 64494; 72020; 76000; 85027; 85610; 85730; J2704